=== PATIENT | male | born 1970 | race Caucasian/White ===

== ENCOUNTER 2018-08-03 14:18 | Emergency (ER) | payer OTHER ==
[~2018-08-03] VITALS: Ht 160 cm; Wt 80.3 kg
[2018-08-03 14:23] VITALS: BP 118/91
[2018-08-03] MEDS: ACETAMINOPHEN 325 MG TAB PO ONE (15:15)
[2018-08-03 16:06] VITALS: BP 120/86
== END 2018-08-03 16:06 | disposition home or self-care (01) ==
LOC: MED 14:18
DX: B02.9 Zoster without complications (principal)
CPT/HCPCS: 99283; Q0163

== ENCOUNTER 2020-07-31 11:10 | Emergency (ER) | payer OTHER ==
[~2020-07-31] VITALS: Ht 160 cm; Wt 77.1 kg
[2020-07-31 11:11] VITALS: BP 141/91
--- NOTE | 2020-07-31 11:17 | NUR ---
PT AMB TO BED 11.
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
--- NOTE | 2020-07-31 11:23 | NUR ---
PROVIDER AT BEDSIDE
--- NOTE | 2020-07-31 11:24 | NUR ---
VISUAL ACUITY PERFORMED, PER PT USES EYEGLASSES AND DID NOT BRING THEM TODAY. PROVIDER NOTIFIED.
[2020-07-31] MEDS ORDERED: FLUORESCEIN OPTH STRIP 1 MG OP ONE (11:35)
[2020-07-31] MEDS ORDERED: TETRACAINE HCL/PF 0.5% OPTH 4 ML BTL OP ONE (11:35)
[2020-07-31 12:02] VITALS: BP 135/82
--- NOTE | 2020-07-31 12:02 | NUR ---
Patient discharged with v/s stable. Written and verbal after care instructions given and explained. Patient alert, oriented and verbalized understanding of instructions. Ambulatory with steady gait. All questions addressed prior to discharge. ID band removed. Patient advised to follow up with PMD. Rx of KETOROLAC,CIPROFLOXACIN given. Patient educated on indication of medication including possible reaction and side effects. Opportunity to ask questions provided and answered.
== END 2020-07-31 12:02 | disposition home or self-care (01) ==
LOC: MED 11:10
DX: H16.009 Unspecified corneal ulcer, unspecified eye (principal)
CPT/HCPCS: 99283

== ENCOUNTER 2022-03-19 10:21 | Observation (INO) | payer OTHER ==
[~2022-03-19] VITALS: Ht 157.5 cm; Wt 78.9 kg
[2022-03-19 10:27] VITALS: BP 137/91
--- NOTE | 2022-03-19 10:38 | NUR ---
Patient ambulated to bed 04 with steady/even gait.
[2022-03-19] MEDS ORDERED: NACL 0.9% 1,000 ML IV ONE (10:40)
--- NOTE | 2022-03-19 10:50 | NUR ---
VANDANA Fox, blood samples collected, walked to lab and handed to CPT Alvarado.
--- NOTE | 2022-03-19 10:55 | NUR ---
51 Y/O MALE BIB SELF C/O URINARY FREQUENCY FOR 1 MONTH. PT STATES HE HAS HAD RECENT WEIGHT LOSS, HEADACHE AND DRY THROAT. ACCU CHECK 508 TODAY. PT DENIES MEDICAL HISTORY. PT DENIES TAKING MEDICATION. PT DENIES FEVER OR CHILLS, SOB, CHEST PAIN. PT IS ALERT AND ORIENTED X4. BD IN LOWEST POSITION, BED RAILX1. MEDHX: DENIES NKA
[2022-03-19 11:04] LABS: BASOPHILS % (AUTO) 0.7 % (0.0-2.0); EOSINOPHILS # (AUTO) 0.1 K/uL (0-0.4); EOSINOPHILS % (AUTO) 1.5 % (0.0-4.0); HEMATOCRIT 47.4 % (36-52); HEMOGLOBIN 16.3 g/dL (12.0-18.0); LYMPHOCYTES # (AUTO) 2.3 K/uL (2.0-11.5); LYMPHOCYTES % (AUTO) 33.3 % (20.5-51.1); MEAN CORPUSCULAR HEMOGLOBIN 29 pg (27-31); MEAN CORPUSCULAR HGB CONC 34 g/dL (33-37); MEAN CORPUSCULAR VOLUME 85.7 fL (80-94); MONOCYTES # (AUTO) 0.6 K/uL (0.8-1.0); MONOCYTES % (AUTO) 7.9 % (1.7-9.3); NEUTROPHILS % (AUTO) 56.6 % (42.2-75.2); PLATELET COUNT (AUTO) 203 K/uL (140-450); RED BLOOD CELL COUNT(AUTO) 5.54 MIL/uL (4.20-6.10); RED CELL DISTRIBUTION WIDTH 13.3 % (11.6-13.7); WHITE BLOOD COUNT (AUTO) 7.1 K/uL (4.8-10.8)
--- NOTE | 2022-03-19 11:37 | NUR ---
PT AMBULATED TO RESTROOM WITH STEADY GAIT. PT NOTED A WHOLE IN HIS URINAL. URINAL DISPOSED OF IN PROPER RECEPTICAL.
[2022-03-19 11:50] LABS: ALBUMIN 3.9 g/dL (3.4-5.0); CARBON DIOXIDE 28.9 mmol/L (21-32); CHLORIDE 95 mmol/L (98-107); CREATININE 0.8 mg/dL (0.6-1.3); GFR ARICAN-AMERICAN 131 mL/min (>90); POTASSIUM 3.9 mmol/L (3.5-5.1); SODIUM SERUM 132 mmol/L (136-145); TOTAL BILIRUBIN 0.6 mg/dL (0.0-1.0); UREA NITROGEN, BLOOD 8 mg/dL (7-18)
[2022-03-19 11:57] LABS: GLUCOSE 560 mg/dL (74-106)
[2022-03-19 12:02] LABS: APPEARANCE,URINE CLEAR (CLEAR); BILIRUBIN,URINE NEGATIVE (NEGATIVE); BLOOD, URINE NEGATIVE (NEGATIVE); COLOR,URINE YELLOW (YELLOW); LEUKOCYTE ESTERASE ,URINE NEGATIVE (NEGATIVE); NITRITE, URINE POSITIVE (NEGATIVE); UGLUCOSE 3+ (NEGATIVE)
--- NOTE | 2022-03-19 12:04 | NUR ---
PT AMBULATED TO RESTROOM
[2022-03-19 12:18] LABS: CALCIUM OXALATE CRYSTALS,UR None Seen /HPF (None Seen); COARSE GRANULAR CASTS,URINE None Seen /LPF (None Seen); FINE GRANULAR CASTS,URINE None Seen /LPF (None Seen); HYALINE CASTS, URINE None Seen /LPF (None Seen); OTHER CASTS, URINE None Seen /LPF (None Seen); OTHER CRYSTALS,URINE None Seen /HPF (None Seen); RBC,URINE 0-5 /HPF (0-5); RED BLOOD CELL CASTS,URINE None Seen /LPF (None Seen); TRICHOMONAS,URINE None Seen /HPF (None Seen); TRIPLE PHOSPHATE CRYSTAL,UR None Seen /HPF (None Seen); URIC ACID CRYSTALS,URINE None Seen /HPF (None Seen); URINE AMORPHOUS URATE None Seen /HPF (None Seen); WAXY CASTS,URINE None Seen /LPF (None Seen); WBC,URINE 0-5 /HPF (0-5); YEAST,URINE None Seen /HPF (None Seen)
[2022-03-19 13:43] LABS: ASPARTATE AMINOTRANSFERASE 62 U/L (15-37)
[2022-03-19] MEDS ORDERED: ONDANSETRON 4 MG/2 ML VIAL IVP PRN (14:35)
[2022-03-19] MEDS ORDERED: HYDROcodone/APAP 5/325 MG 1 TAB TAB PO PRN (14:35)
[2022-03-19] MEDS ORDERED: MORPHINE SULFATE 4 MG/ML SYR IVP PRN (14:35)
[2022-03-19] MEDS ORDERED: DEXTROSE 50% 50 ML SYR IVP PRN (14:35)
[2022-03-19] MEDS ORDERED: POTASSIUM CHLORIDE 10 MEQ TABER PO PRN (14:35)
[2022-03-19] MEDS ORDERED: ACETAMINOPHEN 325 MG TAB PO PRN (14:35)
[2022-03-19] MEDS ORDERED: MAGNESIUM OXIDE 400 MG TAB PO PRN (14:35)
[2022-03-19] MEDS: NACL 0.9% 1,000 ML IV SCH (14:49)
--- NOTE | 2022-03-19 15:27 | NUR ---
Patient will be admitted to care of . Admited to MED SURG. Will go to room 106A. Belongings list completed. Report to SELMA SANTOS.
[2022-03-19 16:49] VITALS: BP 113/83
[2022-03-19] MEDS: BLOOD GLUCOSE MONITORING 1 DEV DEV FS SCH ×2 (17:11→23:03)
[2022-03-19] MEDS: INSULIN LISPRO SLIDING SCALE 100 UNITS/ML VIAL SUBQ PRN ×2 (17:14→22:12)
--- NOTE | 2022-03-19 19:25 | NUR ---
RECEIVED PT FROM AM NURSE FOR CONTINUITY OF CARE.PT IS STABLE
[2022-03-19 20:00] VITALS: BP 130/76
--- NOTE | 2022-03-19 21:30 | NUR ---
ALL MEDICATIONS GIVEN,TOLERATED WELL, BLD GLUCOSE 219,RESPIRATIONS EVEN AND UNLABORED ,NO DISTRESS NOTED
[2022-03-19] MEDS: INSULIN LANTUS 100 UNITS/ML 10 ML VIAL SUBQ SCH (23:05)
--- NOTE | 2022-03-20 01:00 | NUR ---
PATIENT ASLEEP,RESPIRATIONS EVEN AND UNLABORED , NO DISTRESS NOTED.
--- NOTE | 2022-03-20 03:00 | NUR ---
PATIENT ASLEEP,RESPIRATIONS EVEN AND UNLABORED,NO DISTRESS NOTED.
[2022-03-20] MEDS: NACL 0.9% 1,000 ML IV SCH (03:41)
[2022-03-20 04:00] VITALS: BP 126/81
--- NOTE | 2022-03-20 06:00 | NUR ---
PATIENT ASLEEP,BREATHING EVEN AND UNLABORED ,NO DISTRESS NOTED
[2022-03-20] MEDS: INSULIN LISPRO SLIDING SCALE 100 UNITS/ML VIAL SUBQ PRN ×2 (06:45→13:14)
[2022-03-20] MEDS: BLOOD GLUCOSE MONITORING 1 DEV DEV FS SCH ×2 (06:47→11:30)
[2022-03-20 07:05] LABS: ANION GAP 11.5 (8-16); CARBON DIOXIDE 25.8 mmol/L (21-32); CREATININE 0.6 mg/dL (0.6-1.3); POTASSIUM 4.3 mmol/L (3.5-5.1)
[2022-03-20 07:07] LABS: BASOPHILS % (AUTO) 0.8 % (0.0-2.0); EOSINOPHILS # (AUTO) 0.2 K/uL (0-0.4); EOSINOPHILS % (AUTO) 3.2 % (0.0-4.0); HEMATOCRIT 41.9 % (36-52); LYMPHOCYTES # (AUTO) 2.5 K/uL (2.0-11.5); LYMPHOCYTES % (AUTO) 39.2 % (20.5-51.1); MEAN CORPUSCULAR HEMOGLOBIN 29 pg (27-31); MEAN CORPUSCULAR HGB CONC 34 g/dL (33-37); MEAN CORPUSCULAR VOLUME 86.4 fL (80-94); MONOCYTES # (AUTO) 0.6 K/uL (0.8-1.0); MONOCYTES % (AUTO) 8.9 % (1.7-9.3); NEUTROPHILS # (AUTO) 3.1 K/uL (1.8-7.7); NEUTROPHILS % (AUTO) 47.9 % (42.2-75.2); PLATELET COUNT (AUTO) 187 K/uL (140-450); RED BLOOD CELL COUNT(AUTO) 4.85 MIL/uL (4.20-6.10); RED CELL DISTRIBUTION WIDTH 13.8 % (11.6-13.7); WHITE BLOOD COUNT (AUTO) 6.5 K/uL (4.8-10.8)
--- NOTE | 2022-03-20 07:29 | NUR ---
ENDORSED PT TO AM NURSE FOR CONTINUITY OF CARE.PT IS STABLE
--- NOTE | 2022-03-20 07:52 | NUR ---
ACCEPTED REPORT FROM THE NIGHT NURSE, PT RESTING COMFORTABLE IN BED.[id number]
[2022-03-20 08:00] VITALS: BP 120/81
--- NOTE | 2022-03-20 08:10 | NUR ---
PATIENT HAS BEEN SCREENED AND CATEGORIZED HIGH NUTRITION RISK. PATIENT WILL BE SEEN WITHIN 1-2 DAYS OF ADMISSION. / DARRYL STEVENS RD
[2022-03-20] MEDS ORDERED: ENOXAPARIN 40 MG/0.4 ML SYR SUBQ SCH (09:00)
[2022-03-20] MEDS: INSULIN LANTUS 100 UNITS/ML 10 ML VIAL SUBQ SCH (09:00)
[2022-03-20] MEDS ORDERED: METF750T45 PO (12:02)
[2022-03-20] MEDS ORDERED: INSU100S45 SUBQ (12:05)
[2022-03-20] MEDS ORDERED: LANC-486 TP (12:09)
[2022-03-20] MEDS ORDERED: PEN-124 SUBQ (12:09)
[2022-03-20] MEDS ORDERED: LANC-886 TP (12:09)
[2022-03-20 13:50] VITALS: BP 120/81
--- NOTE | 2022-03-20 14:46 | NUR ---
03/20/22 RD INITIAL ASSESSMENT COMPLETED PLEASE REFER TO NUTRITION ASSESSMENT UNDER CARE ACTIVITY FOR ESTIMATED NUTRITIONAL NEEDS. 1. CONTINUE CCHO 60 GM DIET TOLERATED 2. RD PROVIDED DIABETES NUTRITIONAL EDUCATION AND HANDOUT TO PATIENT AND FAMILY 3. RD WILL MONITOR BLOOD GLUCOSE LEVELS 4. RD TO FOLLOW-UP 3-5 DAYS, MODERATE RISK REVIEWED BY DARRYL STEVENS RD
--- NOTE | 2022-03-20 15:28 | NUR ---
PT DISCHARGED, DISCHARGED INSTRUCTION GIVEN, IV LINE AND ID BAND REMOVED, WALKED WITH HIS MOM TO THE CAR WITH OUT DISCOMFORT.[id number]
--- NOTE | 2022-03-24 11:00 | NUR ---
DC PLANNING SW CALL PATIENT'S PCP OFFICE AT TO MAKE A FOLLOW UP APPOINTMENT FOR PATIENT AFTER DC FROM [facility], SW SPOKE TO LISA WHO SCHEDULED PATIENT'S FOLLOW UP APPOINTMENT FOR 03/26/2022 AT 10:00AM WITH DR. ANI CHILDERS. SW CALL PATIENT AT TO PROVIDED HIM WITH APPOINTMENT INFORMATION FOR HIS UPCOMING APPOINTMENT ON 03/26/2022 AT 10:00AM AT [id number] [facility] [id number] ANI CHILDERS. PATIENT AGREED TO ATTEND AND THANKED THIS PROGRAM PROFESSIONAL FOR THE INFORMATION BEFORE ENDING THE CALL.
== END 2022-03-20 16:40 | disposition home or self-care (01) ==
LOC: MED 10:21 → MTU 14:36
PROVIDERS: ADMIT Student in an Organized Health Care Education/Training Program; ATTEND Student in an Organized Health Care Education/Training Program
DX: E11.65 Type 2 diabetes mellitus with hyperglycemia (principal); Z20.822 Contact with and (suspected) exposure to COVID-19; E66.9 Obesity, unspecified; R35.89 Other polyuria; R63.1 Polydipsia; Z79.899 Other long term (current) drug therapy
CPT/HCPCS: 36415; 80048; 80053; 81001; 82948; 83735; 84484; 85025; 87081; 87426; 93005; 96360; 96361; 96372; 99284; G0378; J1650; J1815; J7030

== ENCOUNTER 2022-06-18 10:15 | Emergency (ER) | payer OTHER ==
[~2022-06-18] VITALS: Ht 160 cm; Wt 77.7 kg
[~2022-06-18 10:15] MED LIST: INSU100S45 SUBQ; LANC-486 TP; LANC-886 TP; METF750T45 PO; PEN-124 SUBQ
[2022-06-18 10:21] VITALS: BP 142/96
--- NOTE | 2022-06-18 10:27 | NUR ---
PATIENT AMBULATED TO BED 1.
--- NOTE | 2022-06-18 10:35 | NUR ---
PATIENT TO XRAY
--- NOTE | 2022-06-18 10:53 | NUR ---
PT BACK FROM XRAY
--- NOTE | 2022-06-18 10:59 | NUR ---
Note lexyone in EDM - 06/18/22 at 1126 by MNSALMAPM 51YR OLD MALE BIB SELF C/O INJURY TO FIRST DIGIT ON R HAND . R HAND SMASHED IN VAN DOOR FIRST DIGIT (THUMB) BRUSIED AND SWELLING. PT STATES HAPPENED YESTERDAY WHEN CLOSING DOOR TO VAN. PRESSURE PAIN 04/01. GOOD ROM OF RIGHT HAND . XRAYS DONE . NKDA DM
--- NOTE | 2022-06-18 10:59 | NUR ---
51YR OLD MALE BIB SELF C/O INJURY TO FIRST DIGIT ON R HAND . R HAND SMASHED IN VAN DOOR FIRST DIGIT (THUMB) DISCOLORED NAIL BED AND SWELLING. PT STATES HAPPENED YESTERDAY WHEN CLOSING DOOR TO VAN. PRESSURE PAIN 5/10. GOOD ROM OF RIGHT HAND . XRAYS DONE . NKDA DM
--- NOTE | 2022-06-18 11:00 | NUR ---
51/M PRESENTS TO ED WITH C/O FIRST DIGIT PAIN ON RIGHT HAND. STATES HE CLOSED A VAN DOOR ON HIS FINGER YESTERDAY, BRUISING AND SWELLING NOTED TO FINGER. PATIENT REPORTS 5/10 PRESSURE LIKE PAIN THAT WORSENS WITH TOUCH OR MOVEMENT OF FINGER.
[2022-06-18 11:04] VITALS: BP 142/96
--- NOTE | 2022-06-18 11:04 | NUR ---
Patient discharged with v/s stable. Written and verbal after care instructions given and explained. Patient verbalized understanding. Ambulatory with steady gait. All questions addressed prior to discharge. Advised to follow up with PMD.
--- NOTE | 2022-06-18 11:05 | NUR ---
The patient's care was reviewed and supervised by Adriane Sosa RN.
== END 2022-06-18 11:04 | disposition home or self-care (01) ==
LOC: MED 10:15
DX: S60.111A Contusion of right thumb with damage to nail, initial encounter (principal); E11.9 Type 2 diabetes mellitus without complications; Z79.899 Other long term (current) drug therapy; Z79.84 Long term (current) use of oral hypoglycemic drugs; Z98.890 Other specified postprocedural states; W23.0XXA Caught, crushed, jammed, or pinched between moving objects, initial encounter; Y93.89 Activity, other specified; Y92.89 Other specified places as the place of occurrence of the external cause; Y99.8 Other external cause status
CPT/HCPCS: 11740; 73140; 99283; 99284

== ENCOUNTER 2023-12-08 03:27 | Inpatient (IN) | payer OTHER ==
[~2023-12-08] VITALS: Ht 160 cm; Wt 74.8 kg
[2023-12-08] VITALS (20 sets, daily range): BP systolic 81–142; BP diastolic 37–92; PULSE 81–112; RESP 12–21; TEMP 97.6–98.4; O2SAT 93–100
[2023-12-08] MEDS ORDERED: LORazepam 2 MG/ML VIAL IVP ONE (03:45)
[2023-12-08] MEDS ORDERED: NACL 0.9% 1,000 ML IV ONE (03:45)
[2023-12-08 04:05] LABS: BASOPHILS % (AUTO) 0.1 % (0.0-2.0); HEMATOCRIT 51.8 % (36-52); HEMOGLOBIN 17.4 g/dL (12.0-18.0); LYMPHOCYTES # (AUTO) 1.2 K/uL (2.0-11.5); LYMPHOCYTES % (AUTO) 5.9 % (20.5-51.1); MEAN CORPUSCULAR HEMOGLOBIN 29 pg (27-31); MEAN CORPUSCULAR HGB CONC 34 g/dL (33-37); MEAN CORPUSCULAR VOLUME 87.2 fL (80-94); MONOCYTES # (AUTO) 1.3 K/uL (0.8-1.0); MONOCYTES % (AUTO) 6.5 % (1.7-9.3); NEUTROPHILS # (AUTO) 17.2 K/uL (1.8-7.7); NEUTROPHILS % (AUTO) 87.5 % (42.2-75.2); PLATELET COUNT (AUTO) 248 K/uL (140-450); RED BLOOD CELL COUNT(AUTO) 5.94 MIL/uL (4.20-6.10); RED CELL DISTRIBUTION WIDTH 14.2 % (11.6-13.7); WHITE BLOOD COUNT (AUTO) 19.7 K/uL (4.8-10.8)
[2023-12-08 04:13] LABS: APPEARANCE,URINE CLEAR (CLEAR); BILIRUBIN,URINE NEGATIVE (NEGATIVE); BLOOD, URINE 3+ (NEGATIVE); COLOR,URINE YELLOW (YELLOW); LEUKOCYTE ESTERASE ,URINE NEGATIVE (NEGATIVE); NITRITE, URINE NEGATIVE (NEGATIVE); PROTEIN,URINE NEGATIVE (NEGATIVE); UGLUCOSE 3+ (NEGATIVE); UROBILINOGEN,URINE 0.2 EU/dL (0.2 - 1)
[2023-12-08 04:30] LABS: BACTERIA,URINE 10-30 (MOD) /HPF (None Seen); RBC,URINE 0-5 /HPF (0-5); WBC,URINE 0-5 /HPF (0-5)
[2023-12-08 04:31] LABS: MUCUS,URINE 1+ /LPF (None Seen); SQUAMOUS EPITHELIAL CELL,UR 0-3 (FEW) /LPF (0-3 (FEW))
[2023-12-08 05:06] LABS: ALBUMIN 4.1 g/dL (3.4-5.0); ANION GAP 26.2 (8-16); CALCIUM 9.3 mg/dL (8.5-10.1); CARBON DIOXIDE 17.7 mmol/L (21-32); CREATININE 1.2 mg/dL (0.6-1.3); MAGNESIUM 2.3 mg/dL (1.8-2.4); POTASSIUM 3.9 mmol/L (3.5-5.1); TOTAL BILIRUBIN 0.8 mg/dL (0.0-1.0); TOTAL PROTEIN, SERUM 9.7 g/dL (6.4-8.2)
[2023-12-08] MEDS ORDERED: POTASSIUM CHL 20 MEQ/NACL 0.9% 1,000 ML IV ONE (05:15)
[2023-12-08] MEDS ORDERED: INSULIN REGULAR, HUMAN 100 UNIT in NACL 0.9% 100 ML IV ONE ×2 (05:30)
[2023-12-08] MEDS ORDERED: ONDANSETRON 4 MG/2 ML VIAL IVP PRN (05:45)
[2023-12-08] MEDS ORDERED: HYDROcodone/APAP 5/325 MG 1 TAB TAB PO PRN (05:45)
[2023-12-08] MEDS ORDERED: LORazepam 1 MG TAB PO PRN (05:45)
[2023-12-08] MEDS ORDERED: MORPHINE SULFATE 4 MG/ML SYR IVP PRN (05:45)
[2023-12-08] MEDS ORDERED: ZOLPIDEM 5 MG TAB PO PRN (05:45)
[2023-12-08] MEDS ORDERED: ACETAMINOPHEN 325 MG TAB PO PRN (05:45)
[2023-12-08] MEDS ORDERED: KCL 20 MEQ IN 100 mL PREMIX 200 ML IV PRN (05:45)
[2023-12-08] MEDS ORDERED: MAG SULF 2000 MG/WATER PREMIX 50 ML IV PRN (05:45)
[2023-12-08] MEDS ORDERED: DEXTROSE 50% 50 ML SYR IVP PRN (05:55)
[2023-12-08] MEDS: BLOOD GLUCOSE MONITORING 1 DEV DEV FS SCH ×18 (05:55→22:55)
[2023-12-08] MEDS: NACL 0.9% 1,000 ML IV SCH ×4 (07:55→20:55)
[2023-12-08] MEDS: DEXT 5% / NACL 0.45% 1,000 ML IV SCH ×3 (07:55→15:56)
[2023-12-08] MEDS: INSULIN REGULAR, HUMAN 100 UNIT in NACL 0.9% 100 ML IV SCH ×2 (08:43)
[2023-12-08 08:48] LABS: ANION GAP 22.2 (8-16); CALCIUM 8.5 mg/dL (8.5-10.1); CARBON DIOXIDE 18.6 mmol/L (21-32); CREATININE 0.9 mg/dL (0.6-1.3); POTASSIUM 4.8 mmol/L (3.5-5.1)
[2023-12-08 08:52] LABS: PHOSPHORUS 3.5 mg/dL (2.5-4.9)
[2023-12-08 12:25] LABS: ANION GAP 11.4 (8-16); CALCIUM 8.3 mg/dL (8.5-10.1); CARBON DIOXIDE 26.9 mmol/L (21-32); CREATININE 0.9 mg/dL (0.6-1.3); POTASSIUM 3.3 mmol/L (3.5-5.1)
[2023-12-08 12:29] LABS: MAGNESIUM 1.9 mg/dL (1.8-2.4); PHOSPHORUS 2.8 mg/dL (2.5-4.9)
[2023-12-08] MEDS: POTASSIUM CHLORIDE 10 MEQ TABER PO PRN (12:36)
[2023-12-08] MEDS: metroNIDAZOLE 500 MG/NS PREMIX 100 ML IV SCH ×2 (13:15→20:06)
[2023-12-08] MEDS ORDERED: POLYVINYL ALCOHOL 1.4% OP 15 ML SOL OP PRN (16:05)
[2023-12-08 16:43] LABS: ANION GAP 14.2 (8-16); CALCIUM 8.3 mg/dL (8.5-10.1); CARBON DIOXIDE 25.3 mmol/L (21-32); CREATININE 0.9 mg/dL (0.6-1.3); POTASSIUM 3.5 mmol/L (3.5-5.1)
[2023-12-08 16:47] LABS: MAGNESIUM 1.9 mg/dL (1.8-2.4); PHOSPHORUS 2.1 mg/dL (2.5-4.9)
[2023-12-08 20:43] LABS: ANION GAP 15.8 (8-16); CALCIUM 8.1 mg/dL (8.5-10.1); CARBON DIOXIDE 20.8 mmol/L (21-32); CREATININE 0.7 mg/dL (0.6-1.3); POTASSIUM 3.6 mmol/L (3.5-5.1)
[2023-12-08 20:46] LABS: MAGNESIUM 1.8 mg/dL (1.8-2.4); PHOSPHORUS 2.2 mg/dL (2.5-4.9)
[2023-12-09] VITALS (15 sets, daily range): BP systolic 88–143; BP diastolic 54–97; PULSE 76–90; RESP 12–21; TEMP 97.6–97.9; O2SAT 95–99
[2023-12-09] MEDS: BLOOD GLUCOSE MONITORING 1 DEV DEV FS SCH ×11 (00:04→18:00)
[2023-12-09] MEDS: DEXT 5% / NACL 0.45% 1,000 ML IV SCH ×2 (00:05→05:15)
[2023-12-09] MEDS: NACL 0.9% 1,000 ML IV SCH (01:08)
[2023-12-09 01:12] LABS: MAGNESIUM 1.9 mg/dL (1.8-2.4); PHOSPHORUS 1.6 mg/dL (2.5-4.9)
[2023-12-09 02:42] LABS: ANION GAP 12.4 (8-16); CALCIUM 8.2 mg/dL (8.5-10.1); CARBON DIOXIDE 23.9 mmol/L (21-32); CREATININE 0.7 mg/dL (0.6-1.3); POTASSIUM 3.3 mmol/L (3.5-5.1)
[2023-12-09] MEDS: POTASSIUM CHLORIDE 10 MEQ TABER PO PRN (03:03)
[2023-12-09] MEDS: INSULIN REGULAR, HUMAN 100 UNIT in NACL 0.9% 100 ML IV SCH ×2 (03:05)
[2023-12-09 04:26] LABS: BASOPHILS % (AUTO) 0.3 % (0.0-2.0); EOSINOPHILS % (AUTO) 0.1 % (0.0-4.0); LYMPHOCYTES % (AUTO) 24.2 % (20.5-51.1); MEAN CORPUSCULAR HEMOGLOBIN 29 pg (27-31); MEAN CORPUSCULAR HGB CONC 34 g/dL (33-37); MEAN CORPUSCULAR VOLUME 84.7 fL (80-94); MONOCYTES # (AUTO) 1.1 K/uL (0.8-1.0); MONOCYTES % (AUTO) 8.9 % (1.7-9.3); NEUTROPHILS # (AUTO) 8.3 K/uL (1.8-7.7); NEUTROPHILS % (AUTO) 66.5 % (42.2-75.2); PLATELET COUNT (AUTO) 183 K/uL (140-450); RED BLOOD CELL COUNT(AUTO) 4.83 MIL/uL (4.20-6.10); RED CELL DISTRIBUTION WIDTH 13.6 % (11.6-13.7); WHITE BLOOD COUNT (AUTO) 12.5 K/uL (4.8-10.8)
[2023-12-09] MEDS: metroNIDAZOLE 500 MG/NS PREMIX 100 ML IV SCH ×2 (04:39→13:42)
[2023-12-09 06:43] LABS: ANION GAP 11.8 (8-16); CARBON DIOXIDE 23.7 mmol/L (21-32); CREATININE 0.6 mg/dL (0.6-1.3); POTASSIUM 3.5 mmol/L (3.5-5.1)
[2023-12-09] MEDS ORDERED: POLYVINYL ALCOHOL 1.4% OP 15 ML SOL OP PRN (07:04)
[2023-12-09] MEDS ORDERED: INSULIN LANTUS 100 UNITS/ML 10 ML VIAL SUBQ SCH ×2 (07:18→09:00)
[2023-12-09] MEDS: INSULIN LISPRO SLIDING SCALE 100 UNITS/ML VIAL SUBQ PRN ×2 (13:05→18:12)
[2023-12-09] MEDS ORDERED: INSU100S45 SUBQ (16:09)
[2023-12-09] MEDS ORDERED: METF-352 PO (16:09)
== END 2023-12-09 19:25 | disposition home or self-care (01) | DRG 420 ==
LOC: MED 03:27 → MIC 05:54
PROVIDERS: ADMIT Hospitalist; ATTEND Hospitalist
DX: E11.10 Type 2 diabetes mellitus with ketoacidosis without coma (principal); D72.829 Elevated white blood cell count, unspecified; F15.90 Other stimulant use, unspecified, uncomplicated; Z79.4 Long term (current) use of insulin; Z79.84 Long term (current) use of oral hypoglycemic drugs
CPT/HCPCS: 36415; 80048; 80053; 81001; 82009; 82803; 82948; 83036; 83735; 84100; 85025; 87081; 96361; 96374; 99291; J0696; J1644; J1815; J2060; J3490; J7030; J7060